=== PATIENT | female | born 1940 | race Native Hawaiian/Other Pacific Islander ===

== ENCOUNTER 2022-06-15 16:01 | Inpatient (IN) | payer OTHER ==
[~2022-06-15] VITALS: Ht 165.1 cm; Wt 82.8 kg
[2022-06-15 17:16] LABS: PLATELET COUNT 204 K/uL (152-353)
[2022-06-15] MEDS ORDERED: CHLORTHALID25 MG PO (17:24)
[2022-06-15] MEDS ORDERED: AMIODARONE HYD200 MG PO (17:25)
[2022-06-15] MEDS ORDERED: VITAMIN D50000 UNIT PO (17:26)
[2022-06-15] MEDS ORDERED: CLOPIDOGREL75 MG PO (17:28)
[2022-06-15] MEDS ORDERED: ATEN50TA36 PO (17:28)
[2022-06-15] MEDS ORDERED: APIX1TAB PO (17:29)
[2022-06-15] MEDS ORDERED: HYDROXYUREA500 MG PO (17:30)
[2022-06-15] MEDS ORDERED: FURO20TA67 PO (17:30)
[2022-06-15] MEDS ORDERED: OLANZAPINE2.5 MG PO (17:31)
[2022-06-15] MEDS ORDERED: CETI10TA PO (17:32)
[2022-06-15] MEDS ORDERED: OMEP40CA PO (17:33)
[2022-06-15] MEDS ORDERED: Z-PAK PO (17:34)
[2022-06-15] MEDS ORDERED: MEDROL DOSEPAK4 MG PO (17:36)
[2022-06-15] MEDS ORDERED: BROMFED DM PO (17:37)
[2022-06-15] MEDS ORDERED: PROAIR RES108 MCG/AC INH (17:38)
[2022-06-15 17:39] LABS: POTASSIUM 3.4 mmol/L (3.6-5.2)
[2022-06-15] MEDS ORDERED: LEVAQUIN250 MG PO (17:39)
[2022-06-15 17:49] VITALS: BP 135/82; TEMP 98.2; Ht 165.1 cm; Wt 82.8 kg
[2022-06-15] MEDS ORDERED: PEPTO BISMOL262 MG PO (17:50)
[2022-06-15 20:00] VITALS: BP 101/66; TEMP 98.2
[2022-06-16] VITALS: BP 111/63; TEMP 98.5
[2022-06-16 04:00] VITALS: BP 147/71; TEMP 99
[2022-06-16 06:11] LABS: PLATELET COUNT 143 K/uL (152-353)
[2022-06-16 06:37] LABS: POTASSIUM 3.3 mmol/L (3.6-5.2)
[2022-06-16 08:12] VITALS: BP 159/86; TEMP 98
[2022-06-16 12:00] VITALS: BP 161/81; TEMP 97.8
[2022-06-16 16:00] VITALS: BP 161/92; TEMP 97.9
[2022-06-16 20:00] VITALS: BP 154/98; TEMP 99.2
[2022-06-17] VITALS: BP 128/59; TEMP 98.7
[2022-06-17 04:00] VITALS: BP 143/75; TEMP 98.5
[2022-06-17 05:56] LABS: PLATELET COUNT 121 K/uL (152-353)
[2022-06-17 06:06] LABS: POTASSIUM 4.2 mmol/L (3.6-5.2)
[2022-06-17 08:00] VITALS: BP 167/83; TEMP 97.7
[2022-06-17 12:00] VITALS: BP 169/89; TEMP 97.6
[2022-06-17 16:00] VITALS: BP 166/72; TEMP 97.5
[2022-06-17 20:00] VITALS: BP 145/88; TEMP 98.2
[2022-06-18] VITALS: BP 131/61; TEMP 99.5
[2022-06-18 04:00] VITALS: BP 125/59; TEMP 98.9
[2022-06-18 05:49] LABS: PLATELET COUNT 146 K/uL (152-353)
[2022-06-18 05:57] LABS: POTASSIUM 4.1 mmol/L (3.6-5.2)
[2022-06-18 08:00] VITALS: BP 146/62; TEMP 98.4
[2022-06-18 12:00] VITALS: TEMP 98.5
[2022-06-18 16:00] VITALS: BP 143/71; TEMP 98.1
[2022-06-18 20:00] VITALS: BP 98/57; TEMP 99.3
[2022-06-19] VITALS: BP 100/62; TEMP 98.9
[2022-06-19 04:00] VITALS: BP 124/65; TEMP 98.7
[2022-06-19 05:15] LABS: PLATELET COUNT 125 K/uL (152-353)
[2022-06-19 05:26] LABS: POTASSIUM 4.4 mmol/L (3.6-5.2)
[2022-06-19 08:00] VITALS: BP 163/91; TEMP 98
[2022-06-19 12:00] VITALS: BP 140/88; TEMP 97.9
[2022-06-19 15:45] VITALS: BP 155/89; TEMP 98.2
== END 2022-06-19 15:15 | DRG 640 ==
LOC: MED/SURG 16:01
PROVIDERS: ADMIT Family Medicine; ATTEND Family Medicine
DX: E86.0 Dehydration (principal); U07.1 COVID-19; N39.0 Urinary tract infection, site not specified; I48.20 Chronic atrial fibrillation, unspecified; E46 Unspecified protein-calorie malnutrition; N18.4 Chronic kidney disease, stage 4 (severe); E78.49 Other hyperlipidemia; Z86.73 Personal history of transient ischemic attack (TIA), and cerebral infarction without residual deficits; R63.0 Anorexia; R53.1 Weakness; R19.7 Diarrhea, unspecified; B96.20 Unspecified Escherichia coli [E. coli] as the cause of diseases classified elsewhere; E87.6 Hypokalemia; Z79.01 Long term (current) use of anticoagulants; I13.10 Hypertensive heart and chronic kidney disease without heart failure, with stage 1 through stage 4 chronic kidney disease, or unspecified chronic kidney disease
CPT/HCPCS: 36415; 80053; 81002; 81015; 82272; 82550; 83630; 83880; 84436; 84443; 84484; 85027; 87015; 87045; 87077; 87086; 87088; 87186; 87324; 87328; 87329; 87449; 87635; 87899; 93005; J1956; U0003